=== PATIENT | male | born 1975 | race Caucasian/White ===

== ENCOUNTER → 2018-10-13 08:46 | Outpatient (CLI) | payer SELFPAY ==
[2018-09-15 09:16] VITALS: BMI 26.4
--- NOTE | 2018-10-13 08:51 | STEWCON_ITS ---
Reason For Study: Chest Pain Stress Results Protocol: Joselito Protocol Maximum Predicted HR: 176 bpm Target HR: 150 bpm % Maximum Predicted HR: 96 % DurationHeart Rate Stage (mm:ss) (bpm) BP Comment Baseline 76 144/98No Chest Pain; Diluted Definity 3 ML Given Joselito Protocol Stage I 3:00 115 158/84No Chest Pain Joselito Protocol Stage II 3:00 139 164/80No Chest Pain Joselito Protocol Stage III 3:00 162 162/86No Chest Pain; Mild Dyspnea Joselito Protocol Stage IV 0:30 169 / No Chest Pain; Moderate Dyspnea Recovery 102 138/82No Chest Pain Stress Duration: 9:30 mm:ss Maximum Stress HR: 169 bpm METS: 11 Baseline Echocardiogram Findings The estimated ejection fraction is 65 %. Stress Echo Wall motion Data Resting WM Intermediate WM Stress WM Resting Wall Motion Wall Motion Stress No regional wall motion No regional wall motion abnormalities noted. abnormalities noted. EKG Data The baseline ECG displays normal sinus rhythm. The patient exercised according to the regular Joselito protocol for a total duration of 9:30. The maximum heart rate attained was 173 beats per minute. This was 98% of maximum predicted heart rate. The patient exercised into stage 4 of the Joselito protocol. During stress, there were no ST or T wave changes noted to suggest ischemia. No arrhythmias noted. No clinical angina was noted. Interpretation Summary The estimated ejection fraction is 65 %. Normal, adequate, treadmill echocardiogram. Negative for ischemia by EKG and echocardiographic criteria. No anginal symptoms noted. No arrhythmias noted. Average exercise capacity for age. Appropriate blood pressure response for exercise. Final LVEF is 75%. Test terminated due to fatigue. Decreased sensitivity due to poor echo windows requiring Definity enhancing agent. The study was technically difficult. Contrast injection was performed. Ordering Physician: Pavan Wild Referring Physician: Andrea Crocker Performed By: Mariah Faye, JOSIE, RVT
--- NOTE | 2018-10-13 08:51 | ECHOCS_ITS ---
Reason For Study: CHEST PAIN Procedure This was a 2D Doppler, Color Flow transthoracic echocardiogram. Contrast injection was performed. Exam performed in department. Left Ventricle Normal size and thickness. The estimated ejection fraction is 65 %. Normal diastology for age. No regional wall motion abnormalities noted. Right Ventricle Normal size and thickness. Normal systolic function. Atria Normal left atrium. Normal right atrium. Normal atrial septum. Mitral Valve The mitral valve is structurally normal. No prolapse or stenosis seen. Tricuspid Valve Normal tricuspid valve. Mild (1+) tricuspid valve insufficiency. Right ventricular systolic pressure estimated to be 35 mmHg. Aortic Valve Normal aortic valve. Trisinus/trileaflet aortic valve. Pulmonic Valve Normal pulmonic valve. Great Vessels Normal aortic root. Normal arch. Normal inferior vena cava. Inferior vena cava collapse with respiration. Pericardium/Pleural No pericardial effusion. Medication 22 gauge I.V. with prn adaptor inserted into right arm. Diluted definity 2ml given slow IV push to enhance endocardial definition. MMode/2D Measurements & Calculations LVIDd: 5.0 cm IVSd: 0.85 cm Ao root diam: 2.9 cm LVIDs: 3.1 cm LVPWd: 0.92 cm RVDd: 3.3 cm FS: 38.8 % LAV(MOD-bp): 56.6 ml LVAd ap4: 33.2 cm2 SV(MOD-sp4): 59.4 ml LAV(MOD-bp) Indexed: 29.3 ml/m2 EDV(MOD-sp4): 114.7 ml LAV(MOD-sp2): 45.8 ml EDV(sp4-el): 120.4 ml LAV(MOD-sp4): 61.2 ml LVAs ap4: 21.1 cm2 ESV(MOD-sp4): 55.3 ml ESV(sp4-el): 58.0 ml EF(MOD-sp4): 51.8 % EF(sp4-el): 51.9 % SV(sp4-el): 62.5 ml LA A4 area: 20.9 cm2 LA dimension(2D): 3.4 cm RA A4 area: 13.3 cm2 Time Measurements MV dec time: 0.19 sec Doppler Measurements & Calculations MV E max mele: 65.6 cm/sec Lat Peak E' Mele: 14.4 cm/sec Med Peak E' Mele: 10.5 cm/sec MV A max mele: 50.7 cm/sec E/E' lat: 4.6 E/E' med: 6.2 MV E/A: 1.3 Ao V2 max: 124.7 cm/sec LV V1 max: 88.8 cm/sec PA V2 max: 148.1 cm/sec Ao max P.2 mmHg LV V1 max P.2 mmHg PI end-d mele: 93.9 cm/sec TR max mele: 274.7 cm/sec TR max P.2 mmHg Interpretation Summary The estimated ejection fraction is 65 %. Normal diastology for age. Mild (1+) tricuspid valve insufficiency. Right ventricular systolic pressure estimated to be 35 mmHg. The study was technically difficult. Contrast injection was performed. Ordering Physician: Pavan Wild Referring Physician: FLOYD GARCIA Performed By: Mariah Faye, LORENZOCS, RVT
== END ==
PROVIDERS: Family Provider Family Medicine; PCP Family Medicine; Referring Provider Internal Medicine Cardiovascular Disease; Visit Provider Internal Medicine Cardiovascular Disease
DX: R07.9 Chest pain, unspecified (principal); R06.09 Other forms of dyspnea; I35.9 Nonrheumatic aortic valve disorder, unspecified; I10 Essential (primary) hypertension
CPT/HCPCS: 93017; 93306; 93350; Q9957; A4216; C8928; C8929

== ENCOUNTER 2023-03-25 10:02 | Inpatient (IN) | payer OTHER, SELFPAY ==
[2023-03-25] VITALS (8 sets, daily range): BP systolic 122–188; BP diastolic 82–102; PULSE 61–85; RESP 14–18; TEMP 36.2–37.3; O2SAT 95–97; BMI 27.3; BMI 26.4
--- NOTE | 2023-03-25 10:25 | EX.ED.DYSGE1 ---
HPI History of Present Illness Chief Complaint: Constipation [facility] Medical History Aortic valve calcification Chest pain Dyspnea on exertion Hypertension Nonrheumatic mitral (valve) prolapse Nonrheumatic mitral valve regurgitation Nonrheumatic tricuspid valve regurgitation Palpitations Secondary pulmonary hypertension Home Medications metoprolol tartrate 50 mg tablet 25 mg PO BID 09/10/18 [History Last Taken Unknown] aspirin 81 mg tablet,delayed release (Adult Aspirin Regimen) 81 mg PO DAILY #90 tabs 09/15/18 [Rx Last Taken Unknown] rosuvastatin 10 mg tablet (Crestor) 10 mg PO DAILY #30 tabs 09/15/18 [Rx Last Taken Unknown] Allergy/AdvReac Type Severity Reaction Status Date / Time No Known Allergies Allergy Verified 03/25/23 10:03 Family History Father , of [place] Myocardial infarction CAD (coronary artery disease) Brother CAD (coronary artery disease) S/P CABG (coronary artery bypass graft) Social History Smoking Status: Never smoker EXAM Physical Exam Const Vital Signs: 03/25/23 10:03 03/25/23 14:37 03/25/23 16:07 Temperature 97.1 F L Temperature Source Temporal Pulse Rate 62 85 67 Respiratory Rate 14 18 18 Blood Pressure 174/94 H 162/102 H 122/96 H Blood Pressure Mean 120 122 104 Pulse Ox 97 96 95 Oxygen Delivery Method Room Air Room Air Room Air [facility] MDM Narrative Medical decision making narrative: HISTORY OF PRESENT ILLNESS: 47-year-old male here with epigastric abdominal pain. Notes he has been treated with antibiotic for concern for UTI possibly kidney stone. Is concerned by kidney stone. Notes bloating in his abdomen. Last bowel movement was yesterday with no melena hematochezia. Notes occasional blood in his urine. Denies any frequency urgency or burning with urination. REVIEW OF SYSTEMS: Pertinent positives: Abdominal pain Pertinent negatives: Chest pain, shortness of breath, flank pain PHYSICAL EXAM: Nursing triage notes reviewed, Vital signs reviewed Constitutional: please see mdm HENT: MMM Eyes: Pupils equal round and reactive to light, Extraocular muscles intact Neck: No stridor, no JVD, full neck ROM Lungs: Clear to auscultation, No wheezing or rales. No increased work of breathing, no conversational dyspnea, no accessory muscle use, no nasal flaring. No respiratory distress noted Heart: Regular rate and rhythm, No murmurs, No rubs and No gallops, 2+ distal pulses (radial, femoral, posterior tibial) in all extremities Abdomen: Soft, there is no tenderness, rigidity, rebound or guarding, no obvious peritoneal signs, no palpable pulsatile abdominal masses, no auscultated abdominal bruit : No CVAT Extremities: No edema Neuro: No focal neurological deficits, cranial nerves II through XII intact, 5/5 strength in all extremities. Intact sensation to light touch in all extremities, 2+ reflexes bilateral patella tendons. Normal gait. No ataxia. Skin: No rash or lesions noted MEDICAL DECISION MAKING: Chief Complaint: Constipation External records reviewed: No recent advanced imaging the abdomen noted in the chart Factors affecting care: Hypertension, hyperlipidemia, palpitations, no prior abdominal surgeries noted Social determinants of health: Denies alcohol History obtained from others: The patient's Consults: none ALL IMAGES (IF OBTAINED) HAVE BEEN PERSONALLY REVIEWED AND INTERPRETED BY MYSELF. MDM Narrative: Patient is hemodynamically stable, afebrile, nontoxic-appearing. Abdominal exam benign not consistent with perforation or obstruction. I considered the following differential diagnosis: AAA, small bowel obstruction, abdominal perforation, appendicitis, pancreatitis, hepatobiliary pathology (acute cholecystitis), mesenteric ischemia, I obtained a CT to rule out signs of nephrolithiasis, kidney inflammation. CT scan showed evidence of intussusception and stomach distention concerning for obstruction. I did consult general surgery spoke to Dr. Mcintyre who recommended placing an NG tube and repeating imaging with p.o. contrast. NG tube was placed and revealed 400 cc of bilious gastric expectorant. We are awaiting CT scan for final surgery recommendations. Signed out to p.m. physician pending CT scan and surgery recommendations for final disposition. The patient and/or family, caregivers express understanding. The patient and/or family, caregivers agrees with the plan. Shared decision making: I will have a discussion with the patient and or visitors regarding risk/benefits of further testing or admission. They will be made aware of of the risk/benefits inherent in this decision they will be given the opportunity to voice understanding. Total critical care time today provided was at least 0 minutes. This excludes separately billable procedures. Critical care time (if documented) is secondary to the patient having high probability of clinically significant/life threatening deterioration in the patient's condition which required my urgent intervention. Lab Data Attestation: I reviewed the patient's lab results. Lab results narrative: BMP with no significant electrolyte abnormality, no MIGUEL ANGEL, no anion gap to suggest endorgan hypoperfusion LFTs without evidence of hepatobiliary obstruction Troponin is negative, no evidence of myocardial ischemia Urine with evidence of mild inflammation no obvious evidence of UTI LFTs show no evidence of hepatobiliary pathology. Labs: Laboratory Results - last 24 hr 03/25/23 03/25/23 03/25/23 11:13 11:35 15:10 WBC 10.6 RBC 4.80 Hgb 13.6 Hct 42.2 MCV 87.9 MCH 28.3 MCHC 32.2 RDW Std Deviation 41.6 RDW Coeff of [place] 13.0 Plt Count 397 MPV 8.2 Immature Gran % (Auto) 0.500 Neut % (Auto) 74.6 H Lymph % (Auto) 16.3 L [place] % (Auto) 6.4 Eos % (Auto) 1.6 Baso % (Auto) 0.6 Absolute Neuts (auto) 7.9 H Absolute Lymphs (auto) 1.72 Nucleated RBC % 0 Sodium 137 Potassium 4.5 Chloride 103 Carbon Dioxide 28.0 Anion Gap 6 BUN 13 Creatinine 1.20 Estim Creat Clear Calc 72.83 Est GFR (MDRD) Af Amer 83 Est GFR (MDRD) Non-Af 68 BUN/Creatinine Ratio 10.8 Glucose 112 H Calcium 9.8 Total Bilirubin 0.30 AST 10 L ALT 21 Alkaline Phosphatase 65 Troponin I High Sens < 3 L Total Protein 7.5 Albumin 3.4 Globulin 4.1 Albumin/Globulin Ratio 0.8 L Lipase 22 Urine Color Yellow Urine Clarity Clear Urine pH 6.0 Ur Specific [place] 1.010 Urine Protein Negative Urine Glucose (UA) Normal Urine Ketones Negative Urine Occult Blood 10 H Urine Nitrite Negative Urine Bilirubin Negative Urine Urobilinogen Normal Ur Leukocyte Esterase 25 H Urine RBC 0 SEEN Urine WBC 0 SEEN Ur Squamous Epith Cells 0 SEEN Urine Bacteria 0 SEEN Urine Mucus 0 SEEN Radiography Diagnostic Testing: Clinical Impression(s) from Imaging Studies Abdomen/Pelvis CT 03/25/23 11:02 IMPRESSION: Fluid-filled and distended stomach. Proximal small bowel dilatation with findings suggestive of an intussusception in the mid jejunal level. Inflammatory changes seen in the left hemicolon. Electronically Signed: Mj Caraballo MD at 13:11 EDT , KUB X-Ray 03/25/23 14:40 IMPRESSION: The tip of a nasogastric tube is in the body of the stomach. Electronically Signed: Mj Caraballo MD at 14:58 EDT , Discharge Plan Triage Chief Complaint: Constipation ED Provider: Lyndon Gooden Dx/Rx/DC Orders Prescriptions: No Action metoprolol tartrate 50 mg tablet 25 mg PO BID aspirin [Adult Aspirin Regimen] 81 mg tablet,delayed release (DR/EC) 81 mg PO DAILY Qty: 90 3RF rosuvastatin [Crestor] 10 mg tablet 10 mg PO DAILY Qty: 30 11RF Primary Care Provider: Andrea Crocker Referrals: Andrea Crocker DO [Primary Care Provider] -
--- NOTE | 2023-03-25 11:02 | EKG12_ITS ---
Test Reason : ABD PAIN Blood Pressure : / mmHG Vent. Rate : 056 BPM Atrial Rate : 056 BPM P-R Int : 150 ms QRS Dur : 086 ms QT Int : 442 ms P-R-T Axes : 062 066 066 degrees QTc Int : 426 ms Sinus bradycardia Otherwise normal ECG Confirmed by XI LYNN ([id number]), tape editor ALKA PACHECO ([id number]) on 04/01/2023 8:26:49 AM Referred By: Confirmed By:XI LYNN
--- NOTE | 2023-03-25 11:02 | CT_ITS ---
STUDY: CT ABDOMEN AND PELVIS WITH CONTRAST REASON FOR EXAM: Male, 47 years old. Abdominal pain -- IV PO Contrast. Constipation. Recently treated for renal infection. RADIATION DOSAGE (If Supplied By Facility): CTDIvol = ( 17.42 ) mGy, DLP = ( 867.24 ) mGycm TECHNIQUE: Transaxial images were obtained from the dome of the diaphragm to the symphysis pubis with oral contrast. Oral and amp; IV Gastrografin and amp; 100mL Isovue-370 was administered. Sagittal and coronal images were reconstructed. Individualized dose optimization techniques were used for this CT. COMPARISON: None. FINDINGS: Mild degree of increased markings at the lung bases suggestive of a atelectasis. The visualized portions of the heart are within normal limits. Normal liver. Normal gallbladder and extrahepatic biliary system. Normal spleen. Normal pancreas. Normal bilateral adrenal glands. Normal right kidney. Normal left kidney. Fluid distended stomach. Dilated fluid-filled proximal small bowel loops down to the mid left abdomen. Findings suggestive of a intussusception. Inflammatory changes are seen in the distal portion of the transverse colon as well as the splenic flexure and descending and sigmoid colon suggestive of a colitis. There is evidence of a diverticular disease of the descending colon and sigmoid colon. The appendix is visualized and appears normal. Normal abdominal aorta. Normal inferior vena cava. Normal retroperitoneum. Normal urinary bladder. There is a small umbilical hernia containing fat. Normal osseous structures. CT/Abdomen/Pelvis WITH Contrast IMPRESSION: Fluid-filled and distended stomach. Proximal small bowel dilatation with findings suggestive of an intussusception in the mid jejunal level. Inflammatory changes seen in the left hemicolon. Electronically Signed: Mj Caraballo MD at 13:11 EDT ,
[2023-03-25] MEDS: 0.9% Normal Saline 1,000 ML 1000 ML IV (11:41)
[2023-03-25 11:46] LABS: Bacteria 0 SEEN /hpf (None Seen); Mucous, Urine 0 SEEN /hpf (<or=2+); Red Blood Cells-Urine 0 SEEN /hpf (0-5); Squamous Epithelial Cells - UA 0 SEEN /hpf (0-5); White Blood Cells 0 SEEN /hpf (0-5)
[2023-03-25 11:47] LABS: ALB/GLOB Ratio 0.8 RATIO (0.9-2.4); AST(SGOT) 10 U/L (15-37); Alanine Aminotransfer ALT/SGPT 21 U/L (16-61); Albumin, Serum 3.4 g/dL (3.2-5.0); Alkaline Phosphatase 65 U/L (45-117); Anion Gap 6 (5-15); BUN 13 mg/dL (7-18); BUN/Creat Ratio 10.8 RATIO (10-20); Calcium,Total 9.8 mg/dL (8.5-10.1); Chloride 103 mmol/L (98-107); EST Glomerular Filtration Rate 68 mL/min (>60); Est Glom Filt Rate - Afr Amer 83 mL/min (>60); Estimated Creatinine Clearance 72.83 ml/min; Globulin 4.1 g/dL (2.2-4.2); Glucose 112 mg/dL (74-106); Lipase 22 U/L (13-75); Potassium 4.5 mmol/L (3.5-5.1); Protein, Total 7.5 g/dL (6.4-8.2); Sodium Level 137 mmol/L (136-145); Troponin-I HS < 3 pg/mL (3.0-78.0)
[2023-03-25 11:50] LABS: Color, Urine Yellow (Yellow); Glucose, Dipstick Normal (Normal); Ketone-Dipstick Negative (Negative); Leukocyte Esterase-Dipstick 25 /ul (Negative); Nitrite-Dipstick Negative (Negative); Occult Blood-Urine 10 /ul (Negative); Protein-Dipstick Negative (Negative); Urine Bilirubin Dipstick Negative (Negative); Urine Clarity Clear (Clear); Urine Urobilinogen Normal (Normal)
--- NOTE | 2023-03-25 14:40 | RAD_ITS ---
STUDY: X-RAY - ABDOMEN/PELVIS REASON FOR EXAM: Male, 47 years old. NG Insertion TECHNIQUE: Single AP view of the abdomen / pelvis. COMPARISON: None. FINDINGS: The tip of the nasogastric tube is in the body of the stomach. RAD/Abdomen Single View (Portable) IMPRESSION: The tip of a nasogastric tube is in the body of the stomach. Electronically Signed: Mj Caraballo MD at 14:58 EDT ,
--- NOTE | 2023-03-25 15:11 | CT_ITS ---
STUDY: CT ABDOMEN AND PELVIS WITHOUT CONTRAST REASON FOR EXAM: Male, 47 years old. r/o intussusception RADIATION DOSAGE (If Supplied By Facility): CTDIvol = ( 8.14 ) mGy, DLP = ( 459.85 ) mGycm TECHNIQUE: Transaxial images were obtained from the dome of the diaphragm to the symphysis pubis without oral contrast, and without intravenous contrast. Sagittal and coronal images were reconstructed. Individualized dose optimization techniques were used for this CT. COMPARISON: March 25, 2023 FINDINGS: Minor atelectasis within the dependent portion of the lungs. The visualized portions of the heart are within normal limits. Normal liver. Hyperattenuated fluid in the gallbladder consistent with vicarious excretion of previously administered contrast. Normal spleen. Normal pancreas. Normal bilateral adrenal glands. Normal right kidney. Normal left kidney. . There is distention of the stomach status post nasogastric placement. There are distended loops of small bowel in the left upper and mid abdomen without discrete transition point likely representing focal ileus . There diverticular changes of the descending and sigmoid colon . There is thickening of the [place] of the descending and sigmoid colon with inflammatory stranding of the fat in the left upper and mid abdomen consistent with nonspecific colitis . No evidence for acute appendicitis. Normal abdominal aorta. Normal inferior vena cava. Normal retroperitoneum. Normal urinary bladder. Normal abdominal wall. Lumbar spine demonstrates degenerative changes CT/Abdomen/Pel W ORAL Cont Only IMPRESSION: Findings which are most consistent with nonspecific colitis and probable focal reactive ileus in the left upper and mid abdomen. No definitive evidence for small bowel obstruction. Electronically Signed: Ovidio Abad MD at 17:31 EDT ,
[2023-03-25 15:23] LABS: Absolute Lymphocyte Count 1.72 X10^3/uL (0.83-4.51); Absolute Neutrophil Count 7.9 X10^3/uL (2.0-7.7); Basophil# 0.06 X10^3/uL; Basophil% 0.6 % (0-1); Eosinophil# 0.17 X10^3/uL; Eosinophils% 1.6 % (0-5); Hematocrit 42.2 % (40-54); Hemoglobin 13.6 g/dL (13.0-16.5); Lymphocyte # 1.72 X10^3/ul (0.83-4.51); Lymphocyte % 16.3 % (19-41); Mean Corp Hgb Conc 32.2 g/dL (32-36); Mean Corpuscular Hgb 28.3 pg (27.0-32.0); Mean Corpuscular Volume 87.9 fL (80-94); Mean Platelet Vol. 8.2 fl (6.2-12.0); Monocyte# 0.68 X10^3/uL; Monocyte% 6.4 % (0-10); NRBC Flagged by Analyzer 0 % (0-5); Neutrophil % 74.6 % (47-70); Platelet Count 397 K/mm3 (150-450); RBC Distribution Width SD 41.6 fl (35.1-43.9); White Blood Count 10.6 K/mm3 (4.4-11.0)
--- NOTE | 2023-03-25 19:25 | HP.PCM.HOS_ITS ---
HPI - General General Date of Admission: 03/25/23 HPI Narrative CLINTON MYERS, is a 47 M who presents to the hospital with about a week of abdominal discomfort. He states that it started last Friday with some back and flank pain that wraps around to the front on the left side and then it has slowly been getting worse and then he developed some nausea and vomiting and had increased abdominal pain. He denies having any bowel movements today and has not been able to pass flatus. In the ER he had initial CT scan with IV contrast that felt that there was possible intussusception so we will repeat CT scan of the abdomen with oral contrast demonstrated small bowel thickening of uncertain etiology he does not have any family history of Crohn's or ulcerative colitis. He had an NG tube placed that is significant amount of output almost immediately and he feels better with it in. Denies any history of surgery, denies any for seen weight loss or night sweats. [facility] Medical History (Updated 03/25/23 @ 19:[address] Artemio Farrell MD) Aortic valve calcification Chest pain Dyspnea on exertion Hypertension Nonrheumatic mitral (valve) prolapse Nonrheumatic mitral valve regurgitation Nonrheumatic tricuspid valve regurgitation Palpitations Secondary pulmonary hypertension Home Medications metoprolol tartrate 50 mg tablet 50 mg PO BID 09/10/18 [History Last Taken Un known] Allergy/AdvReac Type Severity Reaction Status Date / Time No Known Allergies Allergy Verified 03/25/23 19:06 Family History Father , of [place] Myocardial infarction CAD (coronary artery disease) Brother CAD (coronary artery disease) S/P CABG (coronary artery bypass graft) Surgical History no surgical history no surgical history Social History Smoking Status: Never smoker ROS Constitutional Constitutional: Denies chills, fatigue, fever(s) or malaise Eyes Eyes: Denies blurry vision ENT HEENT: Denies headache(s) or nasal discharge Cardiovascular Cardiovascular: Denies chest pain, dyspnea on exertion or syncope Respiratory/Chest Respiratory/Chest: Denies cough, shortness of breath at rest or shortness of breath with exertion Gastrointestinal Gastrointestinal: Reports abdominal pain and nausea; Denies constipation, diarrhea or vomiting Genitourinary Genitourinary: Denies dysuria Neurologic Neurologic: Denies focal weakness, numbness or tremor(s) Psychiatric Psychiatric: Denies anxiety or depression Vital Signs Vital Signs Vital Signs: 03/25/23 10:03 03/25/23 14:37 03/25/23 16:07 Temperature 97.1 F L Temperature Source Temporal Pulse Rate 62 85 67 Respiratory Rate 14 18 18 Blood Pressure 174/94 H 162/102 H 122/96 H Blood Pressure Mean 120 122 104 Pulse Ox 97 96 95 Oxygen Delivery Method Room Air Room Air Room Air 03/25/23 18:30 03/25/23 18:48 Temperature 98.2 F 98.2 F Temperature Source Oral Oral Pulse Rate 76 76 Respiratory Rate 16 16 Blood Pressure 139/82 H 139/82 H Blood Pressure Mean 101 101 Pulse Ox 95 95 Oxygen Delivery Method Room Air Room Air Weight Weight: 180 lb 1.883 oz Body Mass Index (BMI) 27.3 Physical Exam Narrative General: Alert, Oriented x3, Cooperative, No apparent distress HEENT: Atraumatic, PERRLA, EOMI, Normocephalic, NG tube in place Oral: Moist Mucosa Neck: Supple, No JVD Lungs: Clear to auscultation, Normal air movement, No rhonchi, No wheeze, No rales Cardiovascular: Regular rate, Regular Rhythm, Normal S1, Normal S2, No murmurs Abdomen: Soft, Non Tender, Non-Distended, No Hepato-splenomegaly Extremities: No edema, Capillary Refill Less than 3 Seconds Skin: No rashes, No breakdown Musculoskeletal: No Tenderness to Palpation of Joints or Extremities Neurological: Cranial nerves II-XII grossly intact, Motor Exam 5/5 strength throughout, Sensory exam intact to light touch and pain Psych/Mental Status: Normal Affect, Appropriate Results Lab / Micro Data 03/25/23 15:10 03/25/23 11:13 Labs: Laboratory Results - last 24 hr 03/25/23 11:13: Sodium 137, Potassium 4.5, Chloride 103, Carbon Dioxide 28.0, Anion Gap 6, BUN 13, Creatinine 1.20, Estim Creat Clear Calc 72.83, Est GFR (MDRD) Af Amer 83, Est GFR (MDRD) Non-Af 68, BUN/Creatinine Ratio 10.8, Glucose 112 H, Calcium 9.8, Total Bilirubin 0.30, AST 10 L, ALT 21, Alkaline Phosphatase 65, Troponin I High Sens < 3 L, Total Protein 7.5, Albumin 3.4, Globulin 4.1, Albumin/Globulin Ratio 0.8 L, Lipase 22 03/25/23 11:35: Urine Color Yellow, Urine Clarity Clear, Urine pH 6.0, Ur Specific [place] 1.010, Urine Protein Negative, Urine Glucose (UA) Normal, Urine Ketones Negative, Urine Occult Blood 10 H, Urine Nitrite Negative, Urine Bilirubin Negative, Urine Urobilinogen Normal, Ur Leukocyte Esterase 25 H, Urine RBC 0 SEEN, Urine WBC 0 SEEN, Ur Squamous Epith Cells 0 SEEN, Urine Bacteria 0 SEEN, Urine Mucus 0 SEEN 03/25/23 15:10: WBC 10.6, RBC 4.80, Hgb 13.6, Hct 42.2, MCV 87.9, MCH 28.3, MCHC 32.2, RDW Std Deviation 41.6, RDW Coeff of [place] 13.0, Plt Count 397, MPV 8.2, Immature Gran % (Auto) 0.500, Neut % (Auto) 74.6 H, Lymph % (Auto) 16.3 L, [place] % (Auto) 6.4, Eos % (Auto) 1.6, Baso % (Auto) 0.6, Absolute Neuts (auto) 7.9 H, Absolute Lymphs (auto) 1.72, Nucleated RBC % 0 Radiology Impression Abdomen/Pelvis CT 03/25/23 11:02 IMPRESSION: Fluid-filled and distended stomach. Proximal small bowel dilatation with findings suggestive of an intussusception in the mid jejunal level. Inflammatory changes seen in the left hemicolon. Electronically Signed: Mj Caraballo MD at 13:11 EDT , KUB X-Ray 03/25/23 14:40 IMPRESSION: The tip of a nasogastric tube is in the body of the stomach. Electronically Signed: Mj Caraballo MD at 14:58 EDT , Abdomen CT 03/25/23 15:11 IMPRESSION: Findings which are most consistent with nonspecific colitis and probable focal reactive ileus in the left upper and mid abdomen. No definitive evidence for small bowel obstruction. Electronically Signed: Ovidio Abad MD at 17:31 EDT Reading Location ID and State: [facility] / [place] , Service support , Assessment & Plan Assessment/Plan (1) Mural thickening of small intestine: (2) Ileus: PLAN: Plan 1. Ileus with small bowel thickening ? Unclear as to the etiology if it is infection versus inflammation ? We will place on Zosyn ? Continue with NG tube to low intermittent wall suction ? Will consult general surgery for assistance ? N.p.o. ? We will hold off any narcotics unless absolutely necessary given his ileus, he does feel much better with the NG tube in place ? He is not have any history of abdominal surgery and it does not appear that he has any family history of inflammatory bowel disease ? We will continue with Chloraseptic [place] for his throat 2. Hypertension ? Can resume his home metoprolol and just clamp the tube for absorption DVT: Lovenox 75 minutes was spent on direct patient care, including documentation as well as chart review and collaboration with colleagues Charges/Coding Visit Charges Inpatient E&M: 91683 Init Hosp L3
[2023-03-25] MEDS: Metoprolol Tartrate 50 MG Tablet PO (20:33)
[2023-03-25] MEDS: 0.9% Normal Saline 1,000 ML 100 ML IV (20:36)
[2023-03-25] MEDS: 0.9% Saline Lock 10 ML Syringe IV (22:06)
[2023-03-25] MEDS: Ondansetron 4 MG/2 ML Vial IV (22:06)
[2023-03-26 03:01] VITALS: BP 135/81; PULSE 60; RESP 16; TEMP 36.4; O2SAT 97
[2023-03-26] MEDS: 0.9% Normal Saline 1,000 ML 100 ML IV ×2 (06:19→16:19)
[2023-03-26 06:59] LABS: Absolute Lymphocyte Count 1.81 X10^3/uL (0.83-4.51); Absolute Neutrophil Count 8.6 X10^3/uL (2.0-7.7); Basophil# 0.08 X10^3/uL; Basophil% 0.7 % (0-1); Eosinophil# 0.18 X10^3/uL; Eosinophils% 1.6 % (0-5); Hematocrit 42.3 % (40-54); Hemoglobin 13.4 g/dL (13.0-16.5); Lymphocyte # 1.81 X10^3/ul (0.83-4.51); Lymphocyte % 15.7 % (19-41); Mean Corp Hgb Conc 31.7 g/dL (32-36); Mean Corpuscular Hgb 28.7 pg (27.0-32.0); Mean Corpuscular Volume 90.6 fL (80-94); Mean Platelet Vol. 8.2 fl (6.2-12.0); Monocyte# 0.76 X10^3/uL; Monocyte% 6.6 % (0-10); NRBC Flagged by Analyzer 0 % (0-5); Neutrophil # 8.62 X10^3/uL (2.7-7.7); Neutrophil % 74.9 % (47-70); Platelet Count 360 K/mm3 (150-450); RBC Distribution Width CV 12.9 % (11.6-14.6); RBC Distribution Width SD 42.5 fl (35.1-43.9); Red Blood Count 4.67 M/mm3 (4.6-6.2); White Blood Count 11.5 K/mm3 (4.4-11.0)
[2023-03-26 07:29] LABS: Anion Gap 7 (5-15); BUN 12 mg/dL (7-18); BUN/Creat Ratio 10.3 RATIO (10-20); Calcium,Total 8.7 mg/dL (8.5-10.1); Chloride 108 mmol/L (98-107); Creatinine, Serum 1.16 mg/dL (0.70-1.30); EST Glomerular Filtration Rate 71 mL/min (>60); Est Glom Filt Rate - Afr Amer 86 mL/min (>60); Estimated Creatinine Clearance 75.34 ml/min; Glucose 96 mg/dL (74-106); Potassium 4.2 mmol/L (3.5-5.1); Sodium Level 139 mmol/L (136-145)
--- NOTE | 2023-03-26 08:33 | HP.PCM.SX_ITS ---
HPI - General General Date of Admission: 03/25/23 HPI Narrative CLINTON MYERS, is a 47 M who presents ER due to epigastric pain and burning. Patient states this started on Friday and he was unable to eat he did have a normal bowel movement on Friday. Previous Friday patient did have left back pain that wrapped around to his abdomen however he was able to eat normal meals with that and that did improve by Friday. Patient did have nausea and vomiting with this epigastric pain. Patient came into the ER as white blood count was within normal limits with a slight left shift. Patient had CT abdomen pelvis which questions and small bowel intussusception as well as some colitis. Patient never had previous abdominal surgeries. Patient denies any family history of inflammatory bowel disease UC or Crohn's. Patient had NG placed which removed about a liter of fluid and patient had a repeat CAT scan with p.o. contrast. Within the hour and a half the contrast made to the rectum however he still had the dilated segment of small bowel and appears to also be a very t hickened segment of small bowel causing the dilatation which was not called in the report. This area was near the splenic flexure and they did call for possible colitis which I am not sure the inflammation was due to the colon and not the small bowel. Patient has not had much of the NG overnight. Patient has no nausea and vomiting with the NG in place and also no abdominal pain. [facility] Medical History Aortic valve calcification Chest pain Dyspnea on exertion GERD (gastroesophageal reflux disease) History of stress test Hypertension Nonrheumatic mitral (valve) prolapse Nonrheumatic mitral valve regurgitation Nonrheumatic tricuspid valve regurgitation Palpitations Secondary pulmonary hypertension Home Medications metoprolol tartrate 50 mg tablet 50 mg PO BID 09/10/18 [History Last Taken Unknown] Allergy/AdvReac Type Severity Reaction Status Date / Time No Known Allergies Allergy Verified 03/25/23 19:06 Family History Father , of [place] Myocardial infarction CAD (coronary artery disease) Brother CAD (coronary artery disease) S/P CABG (coronary artery bypass graft) Surgical History no surgical history Social History Smoking Status: Never smoker ROS Constitutional Constitutional: Reports anorexia; Denies fever(s) Eyes Eyes: Denies blurry vision ENT HEENT: Denies dysphagia Cardiovascular Cardiovascular: Denies chest pain Respiratory/Chest Respiratory/Chest: Denies cough Gastrointestinal Gastrointestinal: Reports abdominal pain, nausea and vomiting; Denies constipation or melena Genitourinary Genitourinary: Denies dysuria Musculoskeletal Musculoskeletal: Denies joint swelling Neurologic Neurologic: Denies dizziness Psychiatric Psychiatric: Denies anxiety or depression Endocrine Endocrinology: Denies palpitations Hematologic/Lymphatic Hematologic/Lymphatic: Denies easy bleeding Vital Signs Vital Signs Vital Signs: 03/25/23 10:03 03/25/23 14:37 03/25/23 16:07 Temperature 97.1 F L Temperature Source Temporal Pulse Rate 62 85 67 Respiratory Rate 14 18 18 Blood Pressure 174/94 H 162/102 H 122/96 H Blood Pressure [BP] Blood Pressure Mean 120 122 104 Blood Pressure Mean [BP] Blood Pressure Source Blood Pressure Source [BP] Blood Pressure Position Blood Pressure Position [BP] Blood Pressure Location Blood Pressure Location [BP] Pulse Ox 97 96 95 Oxygen Delivery Method Room Air Room Air Room Air 03/25/23 18:30 03/25/23 18:48 03/25/23 20:33 Temperature 98.2 F 98.2 F Temperature Source Oral Oral Pulse Rate 76 76 61 Respiratory Rate 16 16 Blood Pressure 139/82 H 139/82 H Blood Pressure [BP] Blood Pressure Mean 101 101 Blood Pressure Mean [BP] Blood Pressure Source Blood Pressure Source [BP] Blood Pressure Position Blood Pressure Position [BP] Blood Pressure Location Blood Pressure Location [BP] Pulse Ox 95 95 Oxygen Delivery Method Room Air Room Air 03/25/23 21:00 03/25/23 22:20 03/26/23 03:01 Temperature 99.1 F 97.6 F L Temperature Source Oral Temporal Pulse Rate 64 60 Respiratory Rate 16 16 Blood Pressure 188/99 H 135/81 H Blood Pressure [BP] 143/84 H Blood Pressure Mean 128 99 Blood Pressure Mean [BP] 103 Blood Pressure Source Monitor Monitor Blood Pressure Source [BP] Monitor Blood Pressure Position Semi-Fowlers Semi-Fowlers Blood Pressure Position [BP] Semi-Fowlers Blood Pressure Location Right Arm Right Arm Blood Pressure Location [BP] Right Arm Pulse Ox 97 97 Oxygen Delivery Method Room Air Room Air Weight Weight: 173 lb 6.4 oz Body Mass Index (BMI) 26.4 Physical Exam Const alert, oriented x3 and no apparent distress HEENT normocephalic and head/scalp atraumatic Resp normal respiratory effort Cardio regular rate GI soft to palpation; Negative for non-distended Palpation: Negative for guarding Extremity no clubbing, cyanosis or edema Neuro CN's II-XII intact bilaterally Psych mental status grossly normal Results Lab / Micro Data 03/26/23 06:35 03/26/23 06:35 Labs: Laboratory Results - last 24 hr 03/25/23 11:13: Sodium 137, Potassium 4.5, Chloride 103, Carbon Dioxide 28.0, Anion Gap 6, BUN 13, Creatinine 1.20, Estim Creat Clear Calc 72.83, Est GFR (MDRD) Af Amer 83, Est GFR (MDRD) Non-Af 68, BUN/Creatinine Ratio 10.8, Glucose 112 H, Calcium 9.8, Total Bilirubin 0.30, AST 10 L, ALT 21, Alkaline Phosphatase 65, Troponin I High Sens < 3 L, Total Protein 7.5, Albumin 3.4, Globulin 4.1, Albumin/Globulin Ratio 0.8 L, Lipase 22 03/25/23 11:35: Urine Color Yellow, Urine Clarity Clear, Urine pH 6.0, Ur Specific Matteson 1.010, Urine Protein Negative, Urine Glucose (UA) Normal, Urine Ketones Negative, Urine Occult Blood 10 H, Urine Nitrite Negative, Urine Bilirubin Negative, Urine Urobilinogen Normal, Ur Leukocyte Esterase 25 H, Urine RBC 0 SEEN, Urine WBC 0 SEEN, Ur Squamous Epith Cells 0 SEEN, Urine Bacteria 0 SEEN, Urine Mucus 0 SEEN 03/25/23 15:10: WBC 10.6, RBC 4.80, Hgb 13.6, Hct 42.2, MCV 87.9, MCH 28.3, MCHC 32.2, RDW Std Deviation 41.6, RDW Coeff of Kailee 13.0, Plt Count 397, MPV 8.2, Immature Gran % (Auto) 0.500, Neut % (Auto) 74.6 H, Lymph % (Auto) 16.3 L, [place] % (Auto) 6.4, Eos % (Auto) 1.6, Baso % (Auto) 0.6, Absolute Neuts (auto) 7.9 H, Absolute Lymphs (auto) 1.72, Nucleated RBC % 0 03/26/23 06:35: WBC 11.5 H, RBC 4.67, Hgb 13.4, Hct 42.3, MCV 90.6, MCH 28.7, MCHC 31.7 L, RDW Std Deviation 42.5, RDW Coeff of Kailee 12.9, Plt Count 360, MPV 8.2, Immature Gran % (Auto) 0.500, Neut % (Auto) 74.9 H, Lymph % (Auto) 15.7 L, [place] % (Auto) 6.6, Eos % (Auto) 1.6, Baso % (Auto) 0.7, Absolute Neuts (auto) 8.6 H, Absolute Lymphs (auto) 1.81, Nucleated RBC % 0, Sodium 139, Potassium 4.2, Chloride 108 H, Carbon Dioxide 24.0, Anion Gap 7, BUN 12, Creatinine 1.16, Estim Creat Clear Calc 75.34, Est GFR (MDRD) Af Amer 86, Est GFR (MDRD) Non-Af 71, BUN/Creatinine Ratio 10.3, Glucose 96, Calcium 8.7 Radiology Impression Abdomen/Pelvis CT 03/25/23 11:02 IMPRESSION: Fluid-filled and distended stomach. Proximal small bowel dilatation with findings suggestive of an intussusception in the mid jejunal level. Inflammatory changes seen in the left hemicolon. Electronically Signed: Mj Caraballo MD at 13:11 EDT , KUB X-Ray 03/25/23 14:40 IMPRESSION: The tip of a nasogastric tube is in the body of the stomach. Electronically Signed: Mj Caraballo MD at 14:58 EDT , Abdomen CT 03/25/23 15:11 IMPRESSION: Findings which are most consistent with nonspecific colitis and probable focal reactive ileus in the left upper and mid abdomen. No definitive evidence for small bowel obstruction. Electronically Signed: vOidio Abad MD at 17:31 EDT , Assessment & Plan Assessment/Plan (1) Mural thickening of small intestine: (2) Abdominal pain: PLAN: Plan Continue NG/n.p.o./IV fluids. Okay for NG to be clamped for ambulating. Concerned about possible inflammatory bowel disease in the small bowel as there is diffuse thickening and a segment is distal to the dilated jejunum. This is not obstructing as contrast made to the rectum within 1.5 hr for the CAT scan. Patient is on IV Zosyn. Plan to get GIs input tomorrow as they are not available today. Marlen Mcintyre M.D. Pager: [phone] [facility] [address] [place] [address], [address] [place] [address] Office: [phone]
[2023-03-26 09:00] VITALS: BP 135/78; PULSE 76; RESP 18; TEMP 37.2; O2SAT 96
[2023-03-26 09:39] VITALS: BP 138/75; PULSE 79
[2023-03-26] MEDS: Metoprolol Tartrate 50 MG Tablet PO ×2 (09:39→21:53)
[2023-03-26] MEDS: 0.9% Saline Lock 10 ML Syringe IV (09:40)
[2023-03-26] MEDS: Enoxaparin 40 MG/0.4 ML Syringe SC (09:40)
[2023-03-26] MEDS: Phenol/Sodium Phenolate 180ML 5 SPRAY MUCOUS MEM ×2 (09:41→21:54)
--- NOTE | 2023-03-26 11:20 | CASEMGMT ---
ABDIEL MANLEY Discharge Planning Assessment: Face to Face with patient for initial transition planning/care coordination assessment. ABDIEL MANLEY introduced self and role at [facility], pt alert, answers questions appropriately, voices understanding and is agreeable to participating in assessment with family at bedside.? Care providers, pharmacy,?and demographics verified. ? Admitting Dx: SBO PCP: Obi Specialists: none Preferred Pharmacy: [facility] Insurance: [employer] Prescription Benefit:?States he does believe the [facility] will cover discharge medications LNOK: , son John Living Arrangements: Pt lives with his spouse and children. Pt states he is independent with all ADLs including self care and household tasks. Transportation: Pt hires drivers as needed DME/HHC/SNF: None ? Plan: Return home with the support of his family Will continue to follow and assist with dc planning needs as identified. Ofelia Whitley RN CM
[2023-03-26 15:00] VITALS: BP 129/75; PULSE 74; RESP 16; TEMP 37.1; O2SAT 98
--- NOTE | 2023-03-26 15:15 | CHAPLAIN ---
Type of Pastoral Visit _x__ Initial Visit ___ Follow-up Visit ___ On-call Visit ___ General Patient Visit ___ Spiritual Assessment ___ Family Conference ___ Bereavement ___ Rapid Response ___ Code Blue ___ Other (describe below) Pastoral Care Referral From _x__ Patient ___ Family ___ Nurse ___ Physician ___ Collector ___ Crown Attacher ___ Other (describe below) Sacrament/Intervention _x__ Active listening ___ Anointing ___ Cheondoism ___ Bereavement ___ Communion ___ Kiersten exploration ___ ___ Life review ___ Prayer ___ Reconciliation ___ Sacrament of Sick ___ Supportive presence ___ Wedding ___ Other (describe below) Pastoral Comments patient is resting in bed with spouse at bedside; pt greets this piece marker small arms and states that he is hoping to go home but waiting to see what the medical team determines; pt states he has no concerns or needs at this time;
--- NOTE | 2023-03-26 16:18 | PN.HOSP_ITS ---
Reason for Visit Reason for Visit: Diagnoses Ileus, unspecified (03/25/23) Disease of intestine, unspecified (03/25/23) Unspecified abdominal pain (03/25/23) Subjective Subjective Patient was seen and examined today, I talked with general surgery about his care, patient has evidence of thickening of the small intestine, general surgery feels that the patient may need to be seen by gastroenterology during his hospital stay. Patient has no complaints of abdominal pain at the time my examination, he states he is passing a small amount of gas. Objective Data Objective Data Vital Signs: Vital Signs Temp Pulse Resp BP Pulse Ox O2 Del Method 98.9 F 79 18 138/75 H 96 Room Air 03/26/23 09:00 03/26/23 09:39 03/26/23 09:00 03/26/23 09:39 03/26/23 09:00 03/26/23 09:00 Oxygen Delivery Method Room Air Weight: 78.653 kg Body Mass Index (BMI) 26.4 Intake & Output: Intake and Output for Last 24 Hours 03/24/23 03/25/23 03/26/23 23:59 23:59 23:59 Intake Total 1080 / 1080 1158.67 / 1158.67 Balance 1080 / 1080 1158.67 / 1158.67 Lab / Micro Data 03/26/23 06:35 03/26/23 06:35 Labs: Laboratory Results - last 24 hr 03/26/23 06:35: WBC 11.5 H, RBC 4.67, Hgb 13.4, Hct 42.3, MCV 90.6, MCH 28.7, MCHC 31.7 L, RDW Std Deviation 42.5, RDW Coeff of Kailee 12.9, Plt Count 360, MPV 8.2, Immature Gran % (Auto) 0.500, Neut % (Auto) 74.9 H, Lymph % (Auto) 15.7 L, [place] % (Auto) 6.6, Eos % (Auto) 1.6, Baso % (Auto) 0.7, Absolute Neuts (auto) 8.6 H, Absolute Lymphs (auto) 1.81, Nucleated RBC % 0, Sodium 139, Potassium 4.2, Chloride 108 H, Carbon Dioxide 24.0, Anion Gap 7, BUN 12, Creatinine 1.16, Estim Creat Clear Calc 75.34, Est GFR (MDRD) Af Amer 86, Est GFR (MDRD) Non-Af 71, BUN/Creatinine Ratio 10.3, Glucose 96, Calcium 8.7 Radiography Diagnostic Testing: Radiology Impression Abdomen CT 03/25/23 15:11 IMPRESSION: Findings which are most consistent with nonspecific colitis and probable focal reactive ileus in the left upper and mid abdomen. No definitive evidence for small bowel obstruction. Electronically Signed: Ovidio Abad MD at 17:31 EDT , Physical Exam Const alert, oriented x3, no apparent distress, average body habitus and healthy appearing General Appearance: cooperative, well kempt and well developed Orientation / Consciousness: awake, oriented to person, oriented to place and oriented to time HEENT normocephalic, head/scalp atraumatic and moist oral mucous membranes Eyes PERRL, EOMs intact bilaterally and conjunctivae normal Neck supple, no JVD, thyroid normal and no carotid bruits General: trachea midline Resp normal respiratory effort, no retractions, no use of accessory muscles and clear to auscultation bilaterally Auscultation: Negative for rales, rhonchi or wheezes Cardio regular rate, regular rhythm, S1 normal heart sound, S2 normal heart sound, no murmurs, no rub and no gallops GI soft to palpation and non-tender GI Narrative: decreased bowel sounds Extremity no clubbing, cyanosis or edema Skin no rashes or lesions noted General Skin Exam: no breakdown Neuro oriented x3, CN's II-XII intact bilaterally, moves all extremities, no focal motor deficits and no sensory deficits noted Sensorium / Orientation: awake, alert, oriented to person, oriented to place and oriented to time Speech: speech normal Psych affect normal Assessment & Plan Assessment/Plan (1) Mural thickening of small intestine: PLAN: Plan 1. Ileus with small bowel thickening-etiology unclear, continue care per general surgery, patient has an NG in place, patient is n.p.o. at this time, patient remains on Zosyn #2 essential hypertension-patient will remain on his present medication Total clinical time spent by myself addressing patient's medical issues, reviewing all of his data, and collaborating with patient's care team: 25 minutes Charges/Coding Visit Charges Inpatient E&M: 28381 Subs Hosp L1
--- NOTE | 2023-03-26 19:15 | EX.PCM.CON.G ---
HPI Consult Data Date of Consult: 03/27/23 HPI Narrative Reason for Consultation: Possible Crohns Disease HPI Narrative: CLINTON MYERS, is a 47 M who presented to the hospital with about a week of abdominal discomfort. He states that the pain started a week ago. It started with flank pain that wraps around to the front on the left side and then it has slowly had been getting worse. Then he developed some nausea and vomiting and had increased abdominal pain. He denies having any bowel movements today and has not been able to pass flatus. He previous medical history of hypertension, who never had any surgical intervention. He also has a strong positive family history of premature coronary artery disease. His father of an acute myocardial infarction at age 56, brother had CABG x3 in his 40s, and another brother who has congestive heart failure. There was no history of hematemesis, melena, or hematochezia. His vital signs were unremarkable. Abdominal examination revealed moderate tenderness in the kris-umbilical region with no rebound tenderness or guarding and no organomegaly. Bowel sounds were audible, and rectal examination was normal. His laboratory investigations were within normal range. He underwent CT of the abdomen and pelvis, which revealed a short segment of small bowel intussusception at the left upper quadrant with a target sign appearance. There were no signs of bowel obstruction or ischemia noted on the CT scan of the abdomen and pelvis. Since the patient?s symptoms of pain and vomiting were persistent and the CT was showing small bowel intussusception an ng tube was placed in the ED. Repeat CT scan of the Abdomen on 03/26: Findings which are most consistent with nonspecific colitis and probable focal reactive ileus in the left upper and mid abdomen. No definitive evidence for small bowel obstruction.? MRI enterography was ordered this morning on 03/27/2023 and it is pending. [facility] Medical History Aortic valve calcification Chest pain Dyspnea on exertion GERD (gastroesophageal reflux disease) History of stress test Hypertension Nonrheumatic mitral (valve) prolapse Nonrheumatic mitral valve regurgitation Nonrheumatic tricuspid valve regurgitation Palpitations Secondary pulmonary hypertension Home Medications metoprolol tartrate 50 mg tablet 50 mg PO BID 09/10/18 [History Last Taken Unknown] Allergy/AdvReac Type Severity Reaction Status Date / Time No Known Allergies Allergy Verified 03/25/23 19:06 Family History Father , of [place] Myocardial infarction CAD (coronary artery disease) Brother CAD (coronary artery disease) S/P CABG (coronary artery bypass graft) Surgical History no surgical history Social History Smoking Status: Never smoker Lab / Micro Data 03/27/23 07:55 03/27/23 07:55 Labs: Laboratory Results - last 24 hr 03/26/23 06:35: WBC 11.5 H, RBC 4.67, Hgb 13.4, Hct 42.3, MCV 90.6, MCH 28.7, MCHC 31.7 L, RDW Std Deviation 42.5, RDW Coeff of Kailee 12.9, Plt Count 360, MPV 8.2, Immature Gran % (Auto) 0.500, Neut % (Auto) 74.9 H, Lymph % (Auto) 15.7 L, [place] % (Auto) 6.6, Eos % (Auto) 1.6, Baso % (Auto) 0.7, Absolute Neuts (auto) 8.6 H, Absolute Lymphs (auto) 1.81, Nucleated RBC % 0, Sodium 139, Potassium 4.2, Chloride 108 H, Carbon Dioxide 24.0, Anion Gap 7, BUN 12, Creatinine 1.16, Estim Creat Clear Calc 75.34, Est GFR (MDRD) Af Amer 86, Est GFR (MDRD) Non-Af 71, BUN/Creatinine Ratio 10.3, Glucose 96, Calcium 8.7 Assessment & Plan Assessment/Plan (1) Mural thickening of small intestine: (2) Ileus: PLAN: Plan 1. Ileus with small bowel thickening ? Unclear as to the etiology if it is infection versus inflammation ? Continue on Zosyn ? Continue with NG tube to low intermittent wall suction ? Continue with PPI ? N.p.o. 2. The imaging looks more like an acute finding possibly secondary to inflammatory bowel disease, intussusception, adhesion, stricture. The contrast has gone away through to the rectum. I suspect that he does have a mild ileus. Awaiting on his official MRI report regarding him possibly needing to undergo endoscop or colonoscopy. Charges/Coding Visit Charges Inpatient E&M: 35496 Init Hosp L3
[2023-03-26 21:53] VITALS: PULSE 73
[2023-03-26 22:05] VITALS: BP 148/82; PULSE 72; RESP 16; TEMP 37.1; O2SAT 95
[2023-03-27] VITALS (7 sets, daily range): BP systolic 139–173; BP diastolic 85–93; PULSE 60–77; RESP 16; TEMP 36.2–36.6; O2SAT 94–97
[2023-03-27] MEDS: 0.9% Normal Saline 1,000 ML 100 ML IV ×2 (01:50→12:11)
--- NOTE | 2023-03-27 05:55 | RAD_ITS ---
EXAM: XR ABDOMEN, 1 VIEW CLINICAL INDICATION: psbo -- portable TECHNIQUE: Frontal supine view of the abdomen/pelvis. COMPARISON: CT with oral contrast March 25, 2023. There was evidence of ileus colitis prior CT, also apparently enteritis at least moderately thick walled segment of mid small bowel in the left upper abdomen on review. FINDINGS: LOWER THORAX: No acute pathology. GASTROINTESTINAL TRACT: Mild gas and mild residual oral contrast in the colon and rectum. No dilated small bowel. ORGANS: Unremarkable as visualized. No organomegaly. No abnormal calcifications. BONES/JOINTS: No acute pathology. SOFT TISSUES: No acute pathology. TUBES, LINES AND DEVICES: Enteric tube tip in the body of the stomach to the left of midline. RAD/Abdomen Single View (Portable) IMPRESSION: Nonspecific bowel gas pattern. Well-positioned enteric tube. Electronically Signed: Orquidea Briones MD at 6:18 EDT ,
--- NOTE | 2023-03-27 07:30 | MRI_ITS ---
MR Enterography Abdomen/Pelvis WO/W Contrast 03/27/2023 3:22 PM COMPARISON: CT 03/25/2023 CLINICAL HISTORY: small bowel stricture and jejunitis TECHNIQUE: Following oral administration of enteric contrast and administration of glucagon, multiplanar T1 and T2 weighted images along with dynamic post-gadolinium images were obtained through the abdomen and pelvis . FINDINGS: GI Tract: There are several loops of proximal small bowel demonstrating wall thickening and mucosal hyperenhancement with surrounding mesenteric fat stranding. These loops of proximal small bowel are also dilated. There is a 2.4 x 1.3 cm fluid collection in the lateral wall of the proximal jejunum. There is also short segment circumferential wall thickening and mucosal hyperenhancement of the proximal sigmoid colon. No stricture, fistula, or obstruction. Liver: Unremarkable Gallbladder: Unremarkable Spleen: Unremarkable Pancreas: Unremarkable Adrenal Glands: Unremarkable Kidneys: Unremarkable Bladder: Unremarkable Reproductive: Prostate gland is enlarged.. Lymphadenopathy: Mesenteric lymphadenopathy. Ascites: Absent Bones: No suspicious lesions MRI/Enterography Abd/Pel IMPRESSION: Jejunitis with a 2.4 cm abscess in the lateral wall of the proximal jejunum. No definite stricture, fistula or obstruction. Infectious/inflammatory colitis versus diverticulitis involving the proximal sigmoid colon. Due to slight asymmetry of wall thickening and enhancement, cannot rule out underlying malignancy. Recommend colonoscopy after acute infection has resolved. Prostatomegaly. Correlate with PSA levels. Electronically Signed: Antonio Sloan MD at 22:37 EDT ,
--- NOTE | 2023-03-27 08:10 | PCM.PN.SRG ---
Subjective Subjective NG put out about 300 yesterday per nursing notes, patient denies any nausea vomiting or abdominal pain. Patient did have some diarrhea likely due to p.o. contrast. Patient's KUB this morning does not show any dilated small bowel or stomach and small amount of residual contrast in the colon. Objective Data Objective Data Vital Signs: Vital Signs Temp Pulse Resp BP Pulse Ox O2 Del Method 97.8 F 65 16 149/85 H 94 Room Air 03/27/23 05:59 03/27/23 05:59 03/27/23 05:59 03/27/23 05:59 03/27/23 05:59 03/27/23 05:59 Oxygen Delivery Method Room Air Weight: 173 lb 6.403 oz Body Mass Index (BMI) 26.4 Intake & Output: Intake and Output for Last 24 Hours 03/25/23 03/26/23 03/27/23 23:59 23:59 23:59 Intake Total 1080 / 1080 2238.67 / 2238.67 1120.92 / 1120.92 Output Total 300 / 300 300 / 300 Balance 1080 / 1080 1938.67 / 1938.67 820.92 / 820.92 Lab / Micro Data 03/26/23 06:35 03/26/23 06:35 Radiography Diagnostic Testing: Radiology Impression KUB X-Ray 03/27/23 05:55 IMPRESSION: Nonspecific bowel gas pattern. Well-positioned enteric tube. Electronically Signed: Orquidea Briones MD at 6:18 EDT , Physical Exam Const alert, oriented x3 and no apparent distress Resp normal respiratory effort Cardio regular rate GI soft to palpation; Negative for non-distended Palpation: Negative for guarding Assessment & Plan Assessment/Plan (1) Mural thickening of small intestine: (2) Abdominal pain: PLAN: Plan Continue NG/n.p.o./IV fluids. Okay for NG to be clamped for ambulating. MRI enterography was ordered by GI will await results. Patient is not having a lot out of his NG thus after MRI okay for clears but would initially keep the NG in as I am unsure if he will truly tolerate clears or not. Continue IV Lokesh Mcintyre M.D. Pager: [phone] [facility] [address] [place] [address], [facility], [address] [place] [address] Office: [phone] Charges/Coding Visit Charges Inpatient E&M: 12582 Subs Hosp L2
[2023-03-27 08:16] LABS: Absolute Lymphocyte Count 1.67 X10^3/uL (0.83-4.51); Absolute Neutrophil Count 8.5 X10^3/uL (2.0-7.7); Basophil# 0.07 X10^3/uL; Basophil% 0.6 % (0-1); Eosinophil# 0.12 X10^3/uL; Eosinophils% 1.1 % (0-5); Hemoglobin 13.3 g/dL (13.0-16.5); Lymphocyte # 1.67 X10^3/ul (0.83-4.51); Mean Corp Hgb Conc 32.4 g/dL (32-36); Mean Corpuscular Volume 89.3 fL (80-94); Monocyte# 0.72 X10^3/uL; Monocyte% 6.5 % (0-10); NRBC Flagged by Analyzer 0 % (0-5); Neutrophil # 8.48 X10^3/uL (2.7-7.7); Neutrophil % 76.3 % (47-70); Platelet Count 377 K/mm3 (150-450); RBC Distribution Width CV 12.8 % (11.6-14.6); Red Blood Count 4.59 M/mm3 (4.6-6.2); White Blood Count 11.1 K/mm3 (4.4-11.0)
[2023-03-27 08:43] LABS: Anion Gap 9 (5-15); BUN 15 mg/dL (7-18); BUN/Creat Ratio 15.6 RATIO (10-20); Calcium,Total 8.5 mg/dL (8.5-10.1); Chloride 109 mmol/L (98-107); Creatinine, Serum 0.96 mg/dL (0.70-1.30); EST Glomerular Filtration Rate 88 mL/min (>60); Est Glom Filt Rate - Afr Amer 107 mL/min (>60); Estimated Creatinine Clearance 91.04 ml/min; Glucose 88 mg/dL (74-106); Sodium Level 142 mmol/L (136-145)
--- NOTE | 2023-03-27 09:24 | PN.HOSP_ITS ---
Subjective Subjective Doing well, no issues overnight. NG tube still in place denies any significant abdominal pain Objective Data Objective Data Vital Signs: Vital Signs Temp Pulse Resp BP Pulse Ox O2 Del Method 97.9 F 77 16 155/93 H 97 Room Air 03/27/23 08:35 03/27/23 08:35 03/27/23 08:35 03/27/23 08:35 03/27/23 08:35 03/27/23 08:35 Oxygen Delivery Method Room Air Weight: 173 lb 6.403 oz Body Mass Index (BMI) 26.4 Intake & Output: Intake and Output for Last 24 Hours 03/26/23 03/27/23 03/28/23 03:59 03:59 03:59 Intake Total 1110 / 1110 3240.34 / 3240.34 89.25 / 89.25 Output Total 500 / 500 100 / 100 Balance 1110 / 1110 2740.34 / 2740.34 -10.75 / -10.75 Lab / Micro Data 03/27/23 07:55 03/27/23 07:55 Labs: Laboratory Results - last 24 hr 03/27/23 07:55: WBC 11.1 H, RBC 4.59 L, Hgb 13.3, Hct 41.0, MCV 89.3, MCH 29.0, MCHC 32.4, RDW Std Deviation 42.0, RDW Coeff of Kailee 12.8, Plt Count 377, MPV 8.0, Immature Gran % (Auto) 0.500, Neut % (Auto) 76.3 H, Lymph % (Auto) 15.0 L, [place] % (Auto) 6.5, Eos % (Auto) 1.1, Baso % (Auto) 0.6, Absolute Neuts (auto) 8.5 H, Absolute Lymphs (auto) 1.67, Nucleated RBC % 0, Sodium 142, Potassium 4.0, Chloride 109 H, Carbon Dioxide 24.0, Anion Gap 9, BUN 15, Creatinine 0.96, Estim Creat Clear Calc 91.04, Est GFR (MDRD) Af Amer 107, Est GFR (MDRD) Non-Af 88, BUN/Creatinine Ratio 15.6, Glucose 88, Calcium 8.5 Radiography Diagnostic Testing: Radiology Impression KUB X-Ray 03/27/23 05:55 IMPRESSION: Nonspecific bowel gas pattern. Well-positioned enteric tube. Electronically Signed: Orquidea Briones MD at 6:18 EDT , Physical Exam Narrative General: Alert, Oriented x3, Cooperative, No apparent distress HEENT: Atraumatic, PERRLA, EOMI, Normocephalic, NG tube in place Oral: Moist Mucosa Neck: Supple, No JVD Lungs: Clear to auscultation, Normal air movement, No rhonchi, No wheeze, No rales Cardiovascular: Regular rate, Regular Rhythm, Normal S1, Normal S2, No murmurs Abdomen: Soft, Non Tender, Non-Distended, No Hepato-splenomegaly Extremities: No edema, Capillary Refill Less than 3 Seconds Skin: No rashes, No breakdown Musculoskeletal: No Tenderness to Palpation of Joints or Extremities Neurological: Cranial nerves II-XII grossly intact, Motor Exam 5/5 strength throughout, Sensory exam intact to light touch and pain Psych/Mental Status: Normal Affect, Appropriate Assessment & Plan Assessment/Plan (1) Mural thickening of small intestine: (2) Ileus: PLAN: Plan 1. Ileus with small bowel thickening ? Unclear as to the etiology if it is infection versus inflammation ? We will place on Zosyn ? Continue with NG tube to low intermittent wall suction ?Appreciate general surgery and GI assistance ? Continue with PPI ? N.p.o. ? We will hold off any narcotics unless absolutely necessary given his ileus, he does feel much better with the NG tube in place ? He is not have any history of abdominal surgery and it does not appear that he has any family history of inflammatory bowel disease ? We will continue with Chloraseptic Hinkle for his throat 2. Hypertension ? Can resume his home metoprolol and just clamp the tube for absorption DVT: Lovenox Charges/Coding Visit Charges Inpatient E&M: 27895 Subs Hosp L2
[2023-03-27] MEDS: Enoxaparin 40 MG/0.4 ML Syringe SC (10:09)
[2023-03-27] MEDS: Metoprolol Tartrate 50 MG Tablet PO ×2 (10:09→20:14)
--- NOTE | 2023-03-27 14:30 | RAD_ITS ---
STUDY: X-RAY - ORBITS REASON FOR EXAM: Male, 47 years old. H/O METAL REMOVED FROM EYES TECHNIQUE: 2 view(s) of the orbits were obtained. COMPARISON: None. FINDINGS: Normal bilateral orbits without a metallic orbital foreign body. Normal visualized facial bones. Normal paranasal sinuses. The soft tissue structures are unremarkable. RAD/Orbits for Foreign Body IMPRESSION: No demonstrated metallic orbital foreign body. The patient is cleared for an MRI examination. Electronically Signed: Mustapha Walker MD at 15:10 EDT ,
--- NOTE | 2023-03-27 14:48 | NURSING ---
pt to mri
[2023-03-27] MEDS: Glucagon 1 MG/ML Syringe IV (15:50)
[2023-03-27 19:28] LABS: Erythrocyte Sedimentation Rate 31 mm/hr (0-20)
[2023-03-28] VITALS (7 sets, daily range): BP systolic 136–160; BP diastolic 81–98; PULSE 60–79; RESP 16; TEMP 36.4–37.6; O2SAT 96–99
[2023-03-28] MEDS: 0.9% Normal Saline 1,000 ML 100 ML IV ×3 (00:16→20:19)
[2023-03-28 07:22] LABS: Absolute Lymphocyte Count 1.72 X10^3/uL (0.83-4.51); Absolute Neutrophil Count 8.2 X10^3/uL (2.0-7.7); Basophil# 0.07 X10^3/uL; Basophil% 0.6 % (0-1); Eosinophil# 0.16 X10^3/uL; Eosinophils% 1.5 % (0-5); Hematocrit 40.6 % (40-54); Hemoglobin 12.9 g/dL (13.0-16.5); Lymphocyte # 1.72 X10^3/ul (0.83-4.51); Lymphocyte % 15.7 % (19-41); Mean Corp Hgb Conc 31.8 g/dL (32-36); Mean Corpuscular Hgb 28.7 pg (27.0-32.0); Mean Corpuscular Volume 90.4 fL (80-94); Mean Platelet Vol. 8.1 fl (6.2-12.0); Monocyte# 0.75 X10^3/uL; Monocyte% 6.8 % (0-10); NRBC Flagged by Analyzer 0 % (0-5); Neutrophil # 8.22 X10^3/uL (2.7-7.7); Neutrophil % 74.8 % (47-70); Platelet Count 347 K/mm3 (150-450); RBC Distribution Width CV 12.5 % (11.6-14.6); RBC Distribution Width SD 41.4 fl (35.1-43.9); Red Blood Count 4.49 M/mm3 (4.6-6.2)
--- NOTE | 2023-03-28 07:36 | PN.SURG_ITS ---
Subjective Subjective Patient denies any abdominal pain or nausea with clears. He says he is passing flatus. Objective Data Objective Data Vital Signs: Vital Signs Temp Pulse Resp BP Pulse Ox O2 Del Method 97.6 F L 70 16 136/82 H 96 Room Air 03/28/23 05:06 03/28/23 05:06 03/28/23 05:06 03/28/23 05:06 03/28/23 05:06 03/28/23 05:06 Oxygen Delivery Method Room Air Weight: 173 lb 6.403 oz Body Mass Index (BMI) 26.4 Intake & Output: Intake and Output for Last 24 Hours 03/26/23 03/27/23 03/28/23 23:59 23:59 23:59 Intake Total 2238.67 / 2238.67 4993.84 / 4993.84 318.67 / 318.67 Output Total 300 / 300 300 / 300 Balance 1938.67 / 1938.67 4693.84 / 4693.84 318.67 / 318.67 Lab / Micro Data 03/28/23 07:03 03/27/23 07:55 Labs: Laboratory Results - last 24 hr 03/27/23 07:55: WBC 11.1 H, RBC 4.59 L, Hgb 13.3, Hct 41.0, MCV 89.3, MCH 29.0, MCHC 32.4, RDW Std Deviation 42.0, RDW Coeff of Kailee 12.8, Plt Count 377, MPV 8.0, Immature Gran % (Auto) 0.500, Neut % (Auto) 76.3 H, Lymph % (Auto) 15.0 L, [place] % (Auto) 6.5, Eos % (Auto) 1.1, Baso % (Auto) 0.6, Absolute Neuts (auto) 8.5 H, Absolute Lymphs (auto) 1.67, Nucleated RBC % 0, Sodium 142, Potassium 4. 0, Chloride 109 H, Carbon Dioxide 24.0, Anion Gap 9, BUN 15, Creatinine 0.96, Estim Creat Clear Calc 91.04, Est GFR (MDRD) Af Amer 107, Est GFR (MDRD) Non-Af 88, BUN/Creatinine Ratio 15.6, Glucose 88, Calcium 8.5 03/27/23 19:07: ESR 31 H, C-React Prot Ext Range 49.60 H 03/28/23 07:03: WBC 11.0, RBC 4.49 L, Hgb 12.9 L, Hct 40.6, MCV 90.4, MCH 28.7, MCHC 31.8 L, RDW Std Deviation 41.4, RDW Coeff of Kailee 12.5, Plt Count 347, MPV 8.1, Immature Gran % (Auto) 0.600, Neut % (Auto) 74.8 H, Lymph % (Auto) 15.7 L, [place] % (Auto) 6.8, Eos % (Auto) 1.5, Baso % (Auto) 0.6, Absolute Neuts (auto) 8.2 H, Absolute Lymphs (auto) 1.72, Nucleated RBC % 0 Radiography Diagnostic Testing: Radiology Impression Enterography MRI 03/27/23 07:30 IMPRESSION: Jejunitis with a 2.4 cm abscess in the lateral wall of the proximal jejunum. No definite stricture, fistula or obstruction. Infectious/inflammatory colitis versus diverticulitis involving the proximal sigmoid colon. Due to slight asymmetry of wall thickening and enhancement, cannot rule out underlying malignancy. Recommend colonoscopy after acute infection has resolved. Prostatomegaly. Correlate with PSA levels. Electronically Signed: Antonio Sloan MD at 22:37 EDT , Orbit X-Ray 03/27/23 14:30 IMPRESSION: No demonstrated metallic orbital foreign body. The patient is cleared for an MRI examination. Electronically Signed: Mustapha Walker MD at 15:10 EDT , Physical Exam Const oriented x3 and no apparent distress Resp normal respiratory effort GI normal to inspection, nondistended, normoactive bowel sounds Assessment & Plan Assessment/Plan (1) Mural thickening of small intestine: PLAN: The patient tolerated clear liquids yesterday. I connected his clamped NG to suction and nothing came out. Okay to DC the NG tube. I will leave him on clear liquids until GI decides if scope is necessary. Advance diet as tolerated from my standpoint but I will leave that up to GI. Shantanu Jane MD Pager: [facility] [address] [place] [address], [address] [place] [address] Office:
[2023-03-28 07:52] LABS: Anion Gap 6 (5-15); BUN 11 mg/dL (7-18); BUN/Creat Ratio 12.5 RATIO (10-20); Calcium,Total 8.4 mg/dL (8.5-10.1); Chloride 108 mmol/L (98-107); Creatinine, Serum 0.88 mg/dL (0.70-1.30); EST Glomerular Filtration Rate 98 mL/min (>60); Est Glom Filt Rate - Afr Amer 119 mL/min (>60); Estimated Creatinine Clearance 99.32 ml/min; Glucose 82 mg/dL (74-106); Sodium Level 139 mmol/L (136-145)
[2023-03-28] MEDS: Metoprolol Tartrate 50 MG Tablet PO ×2 (08:40→22:31)
[2023-03-28] MEDS: Enoxaparin 40 MG/0.4 ML Syringe SC (08:40)
[2023-03-28] MEDS: Ensure Clear 120 ML Liquid PO ×4 (08:41→22:30)
--- NOTE | 2023-03-28 10:02 | PN.HOSP_ITS ---
Subjective Subjective Doing well, no issues overnight. Plan to DC NG tube per surgery as he is having bowel function Objective Data Objective Data Vital Signs: Vital Signs Temp Pulse Resp BP Pulse Ox O2 Del Method 97.9 F 79 16 160/93 H 98 Room Air 03/28/23 08:46 03/28/23 08:46 03/28/23 08:46 03/28/23 08:46 03/28/23 08:46 03/28/23 08:46 Oxygen Delivery Method Room Air Weight: 173 lb 6.403 oz Body Mass Index (BMI) 26.4 Intake & Output: Intake and Output for Last 24 Hours 03/27/23 03/28/23 03/29/23 03:59 03:59 03:59 Intake Total 3240.34 / 3240.34 4183.84 / 4183.84 147 / 147 Output Total 500 / 500 100 / 100 Balance 2740.34 / 2740.34 4083.84 / 4083.84 147 / 147 Lab / Micro Data 03/28/23 07:03 03/28/23 07:03 Labs: Laboratory Results - last 24 hr 03/27/23 19:07: ESR 31 H, C-React Prot Ext Range 49.60 H 03/27/23 20:42: Stl Giardia Antigen Cancelled 03/28/23 07:03: WBC 11.0, RBC 4.49 L, Hgb 12.9 L, Hct 40.6, MCV 90.4, MCH 28.7, MCHC 31.8 L, RDW Std Deviation 41.4, RDW Coeff of Kailee 12.5, Plt Count 347, MPV 8.1, Immature Gran % (Auto) 0.600, Neut % (Auto) 74.8 H, Lymph % (Auto) 15.7 L, [place] % (Auto) 6.8, Eos % (Auto) 1.5, Baso % (Auto) 0.6, Absolute Neuts (auto) 8.2 H, Absolute Lymphs (auto) 1.72, Nucleated RBC % 0, Sodium 139, Potassium 4.0, Chloride 108 H, Carbon Dioxide 25.0, Anion Gap 6, BUN 11, Creatinine 0.88, Estim Creat Clear Calc 99.32, Est GFR (MDRD) Af Amer 119, Est GFR (MDRD) Non-Af 98, BUN/Creatinine Ratio 12.5, Glucose 82, Calcium 8.4 L Radiography Diagnostic Testing: Radiology Impression Enterography MRI 03/27/23 07:30 IMPRESSION: Jejunitis with a 2.4 cm abscess in the lateral wall of the proximal jejunum. No definite stricture, fistula or obstruction. Infectious/inflammatory colitis versus diverticulitis involving the proximal sigmoid colon. Due to slight asymmetry of wall thickening and enhancement, cannot rule out underlying malignancy. Recommend colonoscopy after acute infection has resolved. Prostatomegaly. Correlate with PSA levels. Electronically Signed: Antonio Sloan MD at 22:37 EDT , Orbit X-Ray 03/27/23 14:30 IMPRESSION: No demonstrated metallic orbital foreign body. The patient is cleared for an MRI examination. Electronically Signed: Mustapha Walker MD at 15:10 EDT , Physical Exam Narrative General: Alert, Oriented x3, Cooperative, No apparent distress HEENT: Atraumatic, PERRLA, EOMI, Normocephalic, NG tube in place Oral: Moist Mucosa Neck: Supple, No JVD Lungs: Clear to auscultation, Normal air movement, No rhonchi, No wheeze, No rales Cardiovascular: Regular rate, Regular Rhythm, Normal S1, Normal S2, No murmurs Abdomen: Soft, Non Tender, Non-Distended, No Hepato-splenomegaly Extremities: No edema, Capillary Refill Less than 3 Seconds Skin: No rashes, No breakdown Musculoskeletal: No Tenderness to Palpation of Joints or Extremities Neurological: Cranial nerves II-XII grossly intact, Motor Exam 5/5 strength throughout, Sensory exam intact to light touch and pain Psych/Mental Status: Normal Affect, Appropriate Assessment & Plan Assessment/Plan (1) Mural thickening of small intestine: (2) Ileus: PLAN: Plan 1. Ileus with small bowel thickening ? Unclear as to the etiology if it is infection versus inflammation ? We will place on Zosyn ?DC NG tube, started on clear liquid diet pending definitive decision by GI on whether or not a scope is necessary ?Appreciate general surgery and GI assistance ? Continue with PPI ? We will hold off any narcotics unless absolutely necessary given his ileus, he does feel much better with the NG tube in place ? He is not have any history of abdominal surgery and it does not appear that he has any family history of inflammatory bowel disease 2. Hypertension ? Can resume his home metoprolol and just clamp the tube for absorption DVT: Lovenox Charges/Coding Visit Charges Inpatient E&M: 17180 Subs Hosp L2
--- NOTE | 2023-03-28 16:10 | PCM.OPRPT ---
Report of Operation Date of Procedure: 03/28/23 Pre-Operative Diagnosis: Acute cholecystitis Post-Operative Diagnosis: Acute cholecystitis Surgery/Procedure Performed:: Laparoscopic cholecystectomy Description of Surgical Findings:: Very inflamed gallbladder Type of Anesthesia: General/Regional Specimen's removed: Gallbladder Estimated Blood Loss (mL): 100 Description of Procedure: After obtaining informed consent patient was brought back to the operating room. General anesthesia was induced. The abdomen was prepped and draped in usual sterile fashion. A small midline incision was made superior to the umbilicus and deepened to the level of fascia. The fascia was elevated and incised. Next the peritoneum was elevated and incised in the same fashion. Finger sweep was performed and the Choe trocar was placed into the abdomen. The balloon was inflated. The abdomen was inflated to 15 mmHg. Next a camera was introduced into the abdomen and the abdomen was inspected. Next under direct visualization three 5-mm ports were placed one subxiphoid and 2 subcostal. Next the gallbladder was elevated and retracted toward the right shoulder. The peritoneum was stripped from the gallbladder. The infundibulum was located and retracted laterally. Next the triangle of Calot was dissected and the cystic duct and cystic artery were identified. Cholangiograms were attempted. The Griffin clamp was used to clamp across the infundibulum and the catheter needle was inserted into the gallbladder. Under fluoroscopy contrast was instilled into the gallbladder but the cystic duct appeared obstructed. Three hemolock clips were placed across the cystic duct. The cystic duct was then divided leaving 2 clips on the stump. The cystic artery was clipped and divided in the same fashion. The hook cautery was then used to take the gallbladder off of the gallbladder bed. Hemostasis was obtained. There was significant oozing from the gallbladder fossa as well as from the fat anterior to the gallbladder. Argon beam cauterization was used to maintain hemostasis. Gallbladder fossa was irrigated and no active bleeding or bile leakage was noted. Next the camera was introduced in the subxiphoid port. An Endopouch bag was placed through the umbilical port and the gallbladder was placed into it. The gallbladder was then removed through the umbilical incision. The camera was then reinserted through the umbilical port. The gallbladder fossa was inspected once more and noted to be hemostatic with no leaking bile. The abdomen was suctioned dry. The 5 mm ports were removed under direct visualization. The umbilical port was then removed and the air was removed from the abdomen. Next using an 0 Vicryl suture the umbilical fascia was closed in a [id number] fashion. The umbilical port site was irrigated local anesthetic was administered to all the incisions. All the incisions were closed with interrupted subcuticular 4-0 Monocryl sutures followed by Steri-Strips and dressings. The patient was awoken and taken to PACU in stable condition. Admit VTE Documentation VTE Mechan Device Prophylaxis: SCD's
--- NOTE | 2023-03-28 18:07 | PCM.PN.BLA ---
Progress Note I was asked by my partner, Dr. Jane and hospitalist, Dr. Farrell to review patient's MR enterography from 03/27/2023 as well as patient's case. In looking over patient's work-up and reviewing his presentation directly with the patient, I am able to identify an abscess directly adjacent the patient's proximal jejunum from his index CT imaging as well as pericolonic stranding involving the descending colon which itself is thickened. There are numerous diverticulum throughout the left colon from this point distally. Therefore, weighing the odds of either a small bowel diverticulum rupture secondarily involving the colon or a small bowel tumor rupture secondarily involving the colon versus complicated diverticulitis secondarily involving the small bowel I favor the latter. Given this impression, I recommend treating patient as a H[place]hey 1 case of complicated diverticulitis and given his exam with no abdominal discomfort and tolerance of liquid diet?specifically recommend advance to a regular diet and transition to oral antibiotics. If patient tolerates both of these changes without adverse effect would recommend discharge potentially tomorrow with outpatient follow-up with general surgery. Patient could then be imaged with contrasted CT imaging of the abdomen to follow-up his abscess as well as a diagnostic colonoscopy and potentially 6 weeks if there is resolution of the abscess. This plan has been discussed with both patient and the hospitalist service. Physical Exam Const alert, oriented x3 and no apparent distress Resp normal respiratory effort GI GI Narrative: Nondistended, umbilical herniation present but soft and reducible with palpation. Patient nontender x4 quadrants despite varying depths of palpation. Visit Charges Inpatient E&M: 23544 Subs Hosp L2
--- NOTE | 2023-03-28 18:09 | PN.GI_ITS ---
Subjective Subjective Patient does not have any abdominal pain at this time. His MRI enterography is reporting a 2.4 cm jejunal abscess at the site of his previous intussusception. Objective Data Objective Data Vital Signs: Vital Signs Temp Pulse Resp BP Pulse Ox O2 Del Method 98.8 F 70 16 153/90 H 98 Room Air 03/28/23 15:05 03/28/23 15:05 03/28/23 15:05 03/28/23 15:05 03/28/23 15:05 03/28/23 15:05 Oxygen Delivery Method Room Air Weight: 173 lb 6.403 oz Body Mass Index (BMI) 26.4 Intake & Output: Intake and Output for Last 24 Hours 03/26/23 03/27/23 03/28/23 23:59 23:59 23:59 Intake Total 2238.67 / 2238.67 4993.84 / 4993.84 2528.67 / 2528.67 Output Total 300 / 300 300 / 300 Balance 1938.67 / 1938.67 4693.84 / 4693.84 2528.67 / 2528.67 Lab / Micro Data 03/28/23 07:03 03/28/23 07:03 Labs: Laboratory Results - last 24 hr 03/27/23 19:07: ESR 31 H, C-React Prot Ext Range 49.60 H 03/27/23 20:42: Stl Giardia Antigen Cancelled 03/28/23 07:03: WBC 11.0, RBC 4.49 L, Hgb 12.9 L, Hct 40.6, MCV 90.4, MCH 28.7, MCHC 31.8 L, RDW Std Deviation 41.4, RDW Coeff of Kailee 12.5, Plt Count 347, MPV 8.1, Immature Gran % (Auto) 0.600, Neut % (Auto) 74.8 H, Lymph % (Auto) 15.7 L, [place] % (Auto) 6.8, Eos % (Auto) 1.5, Baso % (Auto) 0.6, Absolute Neuts (auto) 8.2 H, Absolute Lymphs (auto) 1.72, Nucleated RBC % 0, Sodium 139, Potassium 4.0, Chloride 108 H, Carbon Dioxide 25.0, Anion Gap 6, BUN 11, Creatinine 0.88, Estim Creat Clear Calc 99.32, Est GFR (MDRD) Af Amer 119, Est GFR (MDRD) Non-Af 98, BUN/Creatinine Ratio 12.5, Glucose 82, Calcium 8.4 L Radiography Diagnostic Testing: Radiology Impression Enterography MRI 03/27/23 07:30 IMPRESSION: Jejunitis with a 2.4 cm abscess in the lateral wall of the proximal jejunum. No definite stricture, fistula or obstruction. Infectious/inflammatory colitis versus diverticulitis involving the proximal sigmoid colon. Due to slight asymmetry of wall thickening and enhancement, cannot rule out underlying malignancy. Recommend colonoscopy after acute infection has resolved. Prostatomegaly. Correlate with PSA levels. Electronically Signed: Antonio Sloan MD at 22:37 EDT , Physical Exam Narrative General: Alert, Oriented x3, Cooperative, No apparent distress HEENT: Atraumatic, PERRLA, EOMI, Normocephalic, NG tube in place Oral: Moist Mucosa Neck: Supple, No JVD Lungs: Clear to auscultation, Normal air movement, No rhonchi, No wheeze, No rales Cardiovascular: Regular rate, Regular Rhythm, Normal S1, Normal S2, No murmurs Abdomen: Soft, Non Tender, Non-Distended, No Hepato-splenomegaly Extremities: No edema, Capillary Refill Less than 3 Seconds Skin: No rashes, No breakdown Musculoskeletal: No Tenderness to Palpation of Joints or Extremities Neurological: Cranial nerves II-XII grossly intact, Motor Exam 5/5 strength throughout, Sensory exam intact to light touch and pain Psych/Mental Status: Normal Affect, Appropriate Assessment & Plan Assessment/Plan (1) Mural thickening of small intestine: (2) Ileus: (3) Abdominal pain: QUALIFIERS: Abdominal location: epigastric Qualified Code(s): R10.13 - Epigastric pain PLAN: Plan 47-year-old gentleman with intussusception along with mural thickening in the small bowel and currently with a 2.4 cm abscess in the jejunum. Awaiting surgical input. Continue antibiotics. Charges/Coding Visit Charges Inpatient E&M: 17622 Subs Hosp L3
[2023-03-29 02:35] VITALS: BP 129/89; PULSE 58; RESP 18; TEMP 36.8; O2SAT 96
[2023-03-29] MEDS: 0.9% Normal Saline 1,000 ML 100 ML IV (05:49)
[2023-03-29 08:05] VITALS: BP 145/90; PULSE 75; RESP 18; TEMP 36.8; O2SAT 97
[2023-03-29 08:16] VITALS: PULSE 75
[2023-03-29] MEDS: Metoprolol Tartrate 50 MG Tablet PO (08:16)
[2023-03-29] MEDS: Ensure Clear 120 ML Liquid PO (08:16)
[2023-03-29] MEDS: Enoxaparin 40 MG/0.4 ML Syringe SC (08:16)
--- NOTE | 2023-03-29 08:25 | PCM.PN.SRG ---
Subjective Subjective Patient seen and examined during AM rounds. He is found sitting out of bed in the chair. He confirms that he tolerated his regular diet without difficulty and has continued to have bowel movements. He states that yesterday's bowel movements were looser, but today's are normalizing. Both he and his expressed a desire for discharge to home. Objective Data Objective Data Vital Signs: Vital Signs Temp Pulse Resp BP Pulse Ox O2 Del Method 98.3 F 75 18 145/90 H 97 Room Air 03/29/23 08:05 03/29/23 08:16 03/29/23 08:05 03/29/23 08:05 03/29/23 08:05 03/29/23 08:09 Oxygen Delivery Method Room Air Weight: 173 lb 6.403 oz Body Mass Index (BMI) 26.4 Intake & Output: Intake and Output for Last 24 Hours 03/27/23 03/28/23 03/29/23 23:59 23:59 23:59 Intake Total 4993.84 / 4993.84 3920.34 / 3920.34 1619.74 / 1619.74 Output Total 300 / 300 Balance 4693.84 / 4693.84 3920.34 / 3920.34 1619.74 / 1619.74 Lab / Micro Data 03/28/23 07:03 03/28/23 07:03 Labs: Laboratory Results - last 24 hr 03/27/23 20:42: Stl Giardia Antigen Cancelled Micro: Microbiology 03/28/23 17:49 Stool Stool Lactoferrin - Final 03/28/23 17:49 Stool Enteric Bacteriology - Final Physical Exam Const oriented x3 and no apparent distress GI GI Narrative: Nondistended, soft, nontender to palpation x4 quadrants. Soft/reducible umbilical hernia Assessment & Plan Assessment/Plan (1) Colitis: (2) Abscess of intestine: PLAN: Plan Patient is a 47-year-old male admitted for concerns of intussusception and intramural abscess of proximal jejunum. This morning he denies any abdominal discomfort and confirms normal bowel function after resumption of a regular diet. Therefore, from a surgical standpoint, I find the patient fit for discharge to home and recommend continuing oral antibiotics for the balance of a 14-day course. Please have patient follow-up with general surgery in 2 weeks time to repeat exam and schedule follow-up CT imaging/diagnostic colonoscopy. Patient has been carefully counseled on any red flag symptoms of increased abdominal discomfort, intolerance of a diet, or increased abdominal distention and advised to present for emergency evaluation. He is further advised to assume a low fiber diet during these initial 2 weeks upon hospital discharge. Charges/Coding Visit Charges Inpatient E&M: 40417 Subs Hosp L2
[2023-03-29] MEDS: Amox/Clavulanate 875 MG Tablet PO (09:56)
--- NOTE | 2023-03-29 11:08 | DCINST_ITS ---
Discharge Instructions Diet Discharge Diet: Low fat / Low cholesterol Activity Discharge Activity: Return to Normal Activity Dressing / Incision Call your doctor if you observe: Fever of 101 or Higher, Shortness of breath, Dizziness, Fainting spells, Swelling in the ankles, Chest pain and Increased palpitations (irregular heartbeat) Follow Up Care Test Results: Test results from this visit will be discussed in further detail at your follow- up appointment, if applicable. Discharge Plan Admission Admit Date/Time: 03/25/23 19:13 Attending Provider: Artemio Farrell Primary Care Provider: Andrea Crocker Consulting Providers: Marlen Mcintyre; Artemio Farrell; Rustam Merida Instructions Patient Instructions: Abdominal Pain Discharge Orders/Prescriptions Prescriptions: New amoxicillin-pot clavulanate 875-125 mg Tablet 1 tab PO BID 10 Days Qty: 20 0RF Continued metoprolol tartrate 50 mg tablet 50 mg PO BID Referrals / Follow Up: Luis M Lees MD [Med Staff - Active Staff] - Within 2 Weeks Andrea Crocker DO [Primary Care Provider] - Within 1 Week Disposition Disposition (needs filled in before D/C Order can be placed): Home, Self Care
--- NOTE | 2023-03-29 14:14 | DS.PCM_ITS ---
Providers Date of Admission: 03/25/23 Primary Care Physician: Dr. Andrea Crocker, DO Consultations 03/25/23 20:02 Consult: General Surgery Routine Consulting Provider: Marlen Mcintyre Reason for Consult: SBO EMERGENT Consult: No MD Notified: Yes Date Notified: 03/25/23 Time Notified: 19:15 Method of Notification: ED Physician Initiated 03/26/23 19:10 Consult: Gastroenterology Routine Consulting Provider: [facility] Reason for Consult: Abnormal CT scan EMERGENT Consult: No Notified: Yes Date Notified: 03/26/23 Time Notified: 19:11 Method of Notification: Verbal Reason For Visit: SBO Diagnosis Discharge Diagnosis (1) Colitis: Status: Acute Code(s): K52.9 - Noninfective gastroenteritis and colitis, unspecified (2) Abscess of intestine: Status: Acute Code(s): K63.0 - Abscess of intestine Medications at Discharge Home Medications metoprolol tartrate 50 mg tablet 50 mg PO BID 09/10/18 amoxicillin 875 mg-potassium clavulanate 125 mg tablet 1 tab PO BID 10 days #20 tabs 03/29/23 Hospital Course Operations None Procedures None Summary of Care Provided Minutes Spent on Discharge: 38 Hospital Course: Per HPI: CLINTON MYERS, is a 47 M who presents to the hospital with about a week of abdominal discomfort. He states that it started last Friday with some back and flank pain that wraps around to the front on the left side and then it has slowly been getting worse and then he developed some nausea and vomiting and had increased abdominal pain. He denies having any bowel movements today and has not been able to pass flatus. In the ER he had initial CT scan with IV contrast that felt that there was possible intussusception so we will repeat CT scan of the abdomen with oral contrast demonstrated small bowel thickening of uncertain etiology he does not have any family history of Crohn's or ulcerative colitis. He had an NG tube placed that is significant amount of output almost immediately and he feels better with it in. Denies any history of surgery, denies any for seen weight loss or night sweats. Hospital Course: 1. Ileus with small bowel thickening and possible jejunal wall abscess? 47-year-old male came into the hospital with a sudden onset of abdominal pain. Initial CT scan demonstrated possible intussusception this appears to have been resolved by the second CT scan with oral contrast. However an MR enterography demonstrated what appeared to be a jejunal wall abscess though given his proximity it could also potentially have been a complicated diverticulitis. Initially he had an NG tube placed with significant relief of symptoms. He was slowly advanced on his diet without any significant abdominal pain or worsening symptoms. General surgery continue to follow the patient and recommended outpatient follow-up after completing a 14-day total course of antibiotics. The plan will be to complete Augmentin as an outpatient and follow-up with general surgery in 2 weeks to schedule an outpatient CT scan and possible colonoscopy at which point further recommendations will be made. I discussed this plan with the patient and his and they both expressed understanding of the risk bene fits of going home and would like to go home today. Recommend outpatient follow-up with her PCP as well. Physical Exam Narrative General: Alert, Oriented x3, Cooperative, No apparent distress HEENT: Atraumatic, PERRLA, EOMI, Normocephalic, NG tube in place Oral: Moist Mucosa Neck: Supple, No JVD Lungs: Clear to auscultation, Normal air movement, No rhonchi, No wheeze, No rales Cardiovascular: Regular rate, Regular Rhythm, Normal S1, Normal S2, No murmurs Abdomen: Soft, Non Tender, Non-Distended, No Hepato-splenomegaly Extremities: No edema, Capillary Refill Less than 3 Seconds Skin: No rashes, No breakdown Musculoskeletal: No Tenderness to Palpation of Joints or Extremities Neurological: Cranial nerves II-XII grossly intact, Motor Exam 5/5 strength throughout, Sensory exam intact to light touch and pain Psych/Mental Status: Normal Affect, Appropriate Weight / BMI Weight Weight: 173 lb 6.403 oz Body Mass Index (BMI) 26.4 ABG / Lab / Microbiology Data 03/28/23 07:03 03/28/23 07:03 Microbiology: Microbiology 03/28/23 17:49 Stool Stool Lactoferrin - Final 03/28/23 17:49 Stool Enteric Bacteriology - Final D/C Instructions Discharge Diet: Low fat / Low cholesterol Call your doctor if you observe: Fever of 101 or Higher, Shortness of breath, Dizziness, Fainting spells, Swelling in the ankles, Chest pain and Increased palpitations (irregular heartbeat) Meaningful Use Info Meaningful Use Diagnoses (Choose all that apply): None applicable Discharge Plan Admission Admit Date/Time: 03/25/23 19:13 Attending Provider: Artemio Farrell Primary Care Provider: Andrea Crocker Consulting Providers: Marlen Mcintyre; Artemio Farrell; Rustam Merida Instructions Patient Instructions: Abdominal Pain Discharge Orders/Prescriptions Prescriptions: New amoxicillin-pot clavulanate 875-125 mg Tablet 1 tab PO BID 10 Days Qty: 20 0RF Continued metoprolol tartrate 50 mg tablet 50 mg PO BID Referrals / Follow Up: Luis M Lees MD [Med Staff - Active Staff] - Within 2 Weeks Andrea Crocker DO [Primary Care Provider] - Within 1 Week Disposition Disposition (needs filled in before D/C Order can be placed): Home, Self Care Charges/Coding Visit Charges Inpatient E&M: 43783 Disch Hosp >30min
[2023-03-31 13:07] LABS: Anti-Centromere B Ab <0.2 AI (0.0-0.9); Anti-Chromatin <0.2 AI (0.0-0.9); Anti-Jo <0.2 AI (0.0-0.9); Anti-Scleroderma-70 AB <0.2 AI (0.0-0.9); Anti-dsDNA Ab <1 IU/mL (0-9); RNP Ab <0.2 AI (0.0-0.9); SJOGREN'S Anti-SS-A test < 0.2 AI (0.0-0.9); SJOGREN'S Anti-SS-B test < 0.2 AI (0.0-0.9); Smith Ab <0.2 AI (0.0-0.9)
[2023-03-31 14:08] LABS: Cytoplasmic Ab (C-ANCA) <1:20 titer (Neg:<1:20); Perinuclear Ab (P-ANCA) <1:20 titer (Neg:<1:20)
[2023-04-01 14:09] LABS: Calprotectin, Stool 92 ug/g (0-120)
[2023-04-02 06:09] LABS: H. PYLORI STOOL AG Negative (Negative)
== END 2023-03-29 13:35 | disposition home or self-care (01) | DRG 389 ==
LOC: ED 11:50 → MS3 19:32
PROVIDERS: Internal Medicine Gastroenterology; Surgery; Admitting Provider Family Medicine; Emergency Provider Emergency Medicine; PCP Family Medicine; Visit Provider Family Medicine
DX: K56.7 Ileus, unspecified (principal); K63.0 Abscess of intestine; I10 Essential (primary) hypertension; K52.9 Noninfective gastroenteritis and colitis, unspecified; Z79.82 Long term (current) use of aspirin; Z79.899 Other long term (current) drug therapy
CPT/HCPCS: 36415; 70030; 74018; 74176; 74177; 74183; 80048; 80053; 81001; 83630; 83690; 83993; 84484; 85025; 85652; 86140; 86225; 86235; 86256; 87177; 87209; 87329; 87338; 87506; 93005; 97802; 99285; A9575; J7030; J7050; Q9967; A4216; J1610; J2405

== ENCOUNTER → 2023-05-07 | Outpatient (CLI) | payer SELFPAY, OTHER ==
[2023-05-07 14:34] LABS: EGFR FINGERSTICK > 60.0000 mL/min (>60)
--- NOTE | 2023-05-07 15:52 | CT_ITS ---
STUDY: CT ABDOMEN AND PELVIS WITH CONTRAST REASON FOR EXAM: Male, 47 years old. f/u from ileus RADIATION DOSAGE (If Supplied By Facility): CTDIvol = ( 14.47 ) mGy, DLP = ( 913.88 ) mGycm TECHNIQUE: Transaxial images were obtained from the dome of the diaphragm to the symphysis pubis without oral contrast. Oral and amp;amp; IV Gastrografin and amp;amp; 100mL Isovue-300 was administered. Sagittal and coronal images were reconstructed. Individualized dose optimization techniques were used for this CT. COMPARISON: None. FINDINGS: Trace bilateral lower lobe subpleural atelectasis. The visualized portions of the heart are within normal limits. Normal liver. Normal gallbladder and extrahepatic biliary system. Normal spleen. Normal pancreas. Normal bilateral adrenal glands. Normal right kidney. Normal left kidney. Normal visualized stomach. Normal small intestine. There is mild stranding at the level of the splenic flexure with mild inflammation in the region of a diverticulum, cannot exclude early diverticulitis (image 60, series 2 images 40 through 43, series 601 and sagittal image 120, series 602). There are multiple areas of thickening of the wall throughout the right and descending portion of the colon including the sigmoid which may indicate mild colitis. The appendix is visualized and appears normal. Minor atherosclerosis otherwise normal aorta. Normal inferior vena cava. Normal retroperitoneum. Normal urinary bladder. Normal abdominal wall. There are diffuse degenerative changes of the visualized lumbar spine. CT/Abdomen/Pelvis WITH Contrast IMPRESSION: Likely scattered colitis with focal area of early or minimal diverticulitis at the splenic flexure of the descending colon not excluded. No acute appendicitis or bowel obstruction. Unremarkable abdominal viscera. Electronically Signed: June Miller MD at 16:08 EDT ,
== END | disposition home or self-care (01) ==
LOC: CT 13:57
PROVIDERS: PCP Family Medicine; Referring Provider Surgery; Visit Provider Surgery
DX: R10.9 Unspecified abdominal pain (principal); K63.0 Abscess of intestine
CPT/HCPCS: 74177; Q9967